=== PATIENT | female | born 1945 | race Hispanic/Latino ===

== ENCOUNTER 2018-02-16 23:47 | Inpatient (IN) | payer OTHER ==
[2018-02-17] MEDS ORDERED: ONDANSETRON 4 MG/2 ML VIAL ONE (00:46)
[2018-02-17] MEDS ORDERED: FENTANYL CITR 100 MCG/2 ML ONE (00:46)
[2018-02-17] MEDS ORDERED: NA CHLORIDE 0.9% 1,000 ML ONE ×2 (00:46→02:58)
[2018-02-17] MEDS ORDERED: PANTOPRAZOLE 40 MG INJ ONE (00:46)
[2018-02-17 01:10] LABS: Protime INR 1.03
[2018-02-17 01:11] LABS: Absolute Lymphocytes (CBC) 2.6 K/uL (0.7-4.9); Absolute Monocytes 0.8 K/uL (0.1-1.3); Absolute Neutrophil 8.3 K/uL (1.8-8.0); Basophils % 0.6 % (0-1.3); Eosinophils % 1.4 % (0-4.4); Hematocrit 43.2 % (36.0-45.0); MCH 30.7 pg (27.0-35.0); MCV 87.7 fL (80-100); MPV 8.4 fL (7.6-11.3); Monocytes % 6.5 % (3.3-12.3); RBC Red Blood Cell Count 4.93 M/uL (3.86-4.86)
[2018-02-17 01:47] LABS: Urine Blood NEGATIVE (NEG); Urine Glucose NEGATIVE (NEG); Urine Protein NEGATIVE (NEG); Urine Specific Gravity 1.015 (1.005-1.030)
[2018-02-17 01:48] LABS: Albumin 4.1 g/dL (3.4-5.0); Bilirubin Direct 0.2 mg/dL (0-0.2); Bilirubin Total 0.9 mg/dL (0.2-1.0); Magnesium 2.1 mg/dL (1.8-2.4); Potassium 3.5 mmol/L (3.5-5.1); Protein, Total 7.7 g/dL (6.4-8.2); Troponin (Emerg Dept Use Only) 0.04 ng/mL (0.0-0.045)
--- NOTE | 2018-02-17 02:41 | EDPHYS ---
Physician Documentation [facility] Name: Teena Rogers Age: 72 yrs Sex: Female : 1945 Arrival Date: 02/16/2018 Time: 23:51 Bed 6 Private MD: ED Physician Memo Person HPI: 02/17 00:29 This 72 yrs old Female presents to ER via Ambulatory with complaints of kaitlyn Abdominal Pain. 00:29 The patient presents with abdominal pain in the epigastric area, in the upper abdomen. kaitlyn Onset: The symptoms/episode began/occurred just prior to arrival, last night. The symptoms do not radiate. Associated signs and symptoms: Pertinent positives: nausea. Historical: - Allergies: 00:20 Codeine; bb - Home Meds: 00:20 brimonidine 0.15 % ophthalmic drop 1 drop twice a day [Active]; desoximetasone Topical bb [Active]; indapamide 2.5 mg oral tab 1 tab twice a day [Active]; levothyroxine 75 mcg tab 1 tab once daily [Active]; Mirapex 0.25 mg Oral tab 1 tab twice a day [Active]; vit D3 2000 IU daily [Active]; vit C daily [Active]; potassium chloride 10 mEq Oral cpER 3 caps once daily [Active]; Rytary 48.75-195 mg oral cpER 1 cap twice a day [Active]; estradiol 10 mcg vag tab Tu and Sun [Active]; - PMHx: 00:20 Hypothyroidism; Parkinsons; Glaucoma; thyroid cancer; bb - PSHx: 00:20 Hysterectomy; Thyroidectomy; arthroscopy; Breast biopsy; neck fusion; Cholecystectomy; bb Appendectomy; - Immunization history:: Adult Immunizations up to date. - Social history:: Smoking status: Patient/guardian denies using tobacco, Patient/guardian denies using alcohol, street drugs. - Ebola Screening: : No symptoms or risks identified at this time. - Family history:: not pertinent. ROS: 00:29 Constitutional: Negative for fever, chills, and weight loss, Eyes: Negative for injury, kaitlyn pain, redness, and discharge, ENT: Negative for injury, pain, and discharge, Neck: Negative for injury, pain, and swelling, Cardiovascular: Negative for chest pain, palpitations, and edema, Respiratory: Negative for shortness of breath, cough, wheezing, and pleuritic chest pain, Back: Negative for injury and pain, : Negative for injury, bleeding, discharge, and swelling, MS/Extremity: Negative for injury and deformity, Skin: Negative for injury, rash, and discoloration, Neuro: Negative for headache, weakness, numbness, tingling, and seizure, Psych: Negative for depression, anxiety, suicide ideation, homicidal ideation, and hallucinations, Allergy/Immunology: Negative for hives, rash, and allergies, Endocrine: Negative for neck swelling, polydipsia, polyuria, polyphagia, and marked weight changes, Hematologic/Lymphatic: Negative for swollen nodes, abnormal bleeding, and unusual bruising. 00:29 Abdomen/GI: Positive for abdominal pain, of the epigastric area, right upper quadrant and left upper quadrant. Exam: 00:29 Constitutional: This is a well developed, well nourished patient who is awake, alert, kaitlyn and in no acute distress. Head/Face: Normocephalic, atraumatic. Eyes: Pupils equal round and reactive to light, extra-ocular motions intact. Lids and lashes normal. Conjunctiva and sclera are non-icteric and not injected. Cornea within normal limits. Periorbital areas with no swelling, redness, or edema. ENT: Nares patent. No nasal discharge, no septal abnormalities noted. Tympanic membranes are normal and external auditory canals are clear. Oropharynx with no redness, swelling, or masses, exudates, or evidence of obstruction, uvula midline. Mucous membranes moist. Neck: Trachea midline, no thyromegaly or masses palpated, and no cervical lymphadenopathy. Supple, full range of motion without nuchal rigidity, or vertebral point tenderness. No Meningismus. Chest/axilla: Normal chest wall appearance and motion. Nontender with no deformity. No lesions are appreciated. Cardiovascular: Regular rate and rhythm with a normal S1 and S2. No gallops, murmurs, or rubs. Normal PMI, no JVD. No pulse deficits. Respiratory: Lungs have equal breath sounds bilaterally, clear to auscultation and percussion. No rales, rhonchi or wheezes noted. No increased work of breathing, no retractions or nasal flaring. Back: No spinal tenderness. No costovertebral tenderness. Full range of motion. Female : Normal external genitalia. Skin: Warm, dry with normal turgor. Normal color with no rashes, no lesions, and no evidence of cellulitis. MS/ Extremity: Pulses equal, no cyanosis. Neurovascular intact. Full, normal range of motion. Neuro: Awake and alert, GCS 15, oriented to person, place, time, and situation. Cranial nerves II-XII grossly intact. Motor strength 5/5 in all extremities. Sensory grossly intact. Cerebellar exam normal. Normal gait. Psych: Awake, alert, with orientation to person, place and time. Behavior, mood, and affect are within normal limits. 00:29 Abdomen/GI: Inspection: distension, Bowel sounds: normal, active, all quadrants, Palpation: mild abdominal tenderness, moderate abdominal tenderness, in the epigastric area, right upper quadrant and left upper quadrant, Liver: no appreciated palpable abnormalities, Hernia: not appreciated. Vital Signs: 00:20 BP 121 / 69; Pulse 77; Resp 16 S; Temp 97.8(O); Pulse Ox 97% on R/A; Weight 68.04 kg bb (R); Height 5 ft. 0 in. (152.40 cm) (R); Pain 8/10; 02:58 BP 140 / 83; Pulse 82; Resp 18; Pulse Ox 96% on R/A; Pain 4/10; tl2 04:10 BP 127 / 55; Pulse 68; Resp 18; Pulse Ox 97% on R/A; tl2 00:20 Body Mass Index 29.29 (68.04 kg, 152.40 cm) MDM: 02/16 23:57 Patient medically screened. [facility] 02/17 00:32 Data reviewed: vital signs, nurses notes, lab test result(s), EKG, radiologic studies, [facility] CT scan, plain films. 02/17 00:27 Order name: Basic Metabolic Panel; Complete Time: : [facility] 02/17 00:27 Order name: CBC with Diff; Complete Time: : [facility] 02/18 00:27 Order name: LFT's; Complete Time: : [facility] 02/17 00:27 Order name: Magnesium; Complete Time: : [facility] 02/17 00:27 Order name: NT PRO-BNP; Complete Time: : [facility] 02/18 00:27 Order name: PT-INR; Complete Time: : [facility] 02/17 00:27 Order name: Troponin (emerg Dept Use Only); Complete Time: 02:26 [facility] 02/17 00:27 Order name: XRAY Chest (1 view) [facility] 02/17 00:27 Order name: Lipase; Complete Time: 02:26 [facility] 02/17 00:27 Order name: CT Abd/Pelvis - W/Contrast [facility] 02/17 00:27 Order name: Urine Culture [facility] 02/17 01:24 Order name: Urine Dipstick--Ancillary (enter results); Complete Time: 02:26 or 02/17 00:27 Order name: EKG; Complete Time: 00:28 [facility] 02/17 00:27 Order name: Cardiac monitoring; Complete Time: 00:27 [facility] 02/17 00:27 Order name: EKG - Nurse/Tech; Complete Time: 00:42 [facility] 02/17 00:27 Order name: IV Saline Lock; Complete Time: 00:27 [facility] 02/17 00:27 Order name: Labs collected and sent; Complete Time: 00:27 [facility] 02/17 00:27 Order name: O2 Per Protocol; Complete Time: 00:27 [facility] 02/17 00:27 Order name: O2 Sat Monitoring; Complete Time: 00:27 [facility] 02/17 02:44 Order name: CONS Physician Consult EDDC 02/17 00:27 Order name: Urine Dipstick-Ancillary (obtain specimen); Complete Time: 01:00 [facility] Administered Medications: 01:01 Drug: NS 0.9% 500 ml Route: IV; Rate: bolus; Site: right antecubital; tl2 03:59 Follow up: IV Status: Completed infusion; IV Intake: 500ml tl2 01:01 Drug: NS 0.9% 1000 ml Route: IV; Rate: 125 ml/hr; Site: right antecubital; tl2 01:01 Drug: ProTONIX 40 mg Route: IVP; Site: right antecubital; tl2 02:00 Follow up: Response: No adverse reaction tl2 01:01 Drug: fentaNYL (PF) 25 mcg Route: IVP; Site: right antecubital; tl2 02:00 Follow up: Response: No adverse reaction; Pain is decreased tl2 01:02 Drug: Zofran 4 mg Route: IVP; Site: right antecubital; tl2 02:00 Follow up: Response: No adverse reaction tl2 02:37 CANCELLED (Duplicate Order): NS 0.9% 1000 ml IV at 125 ml/hr continuous kaitlyn 02:57 Drug: NS 0.9% 1000 ml Route: IV; Rate: 1 bolus; Site: right antecubital; tl2 04:01 Follow up: IV Status: Completed infusion; IV Intake: 1000ml tl2 02:57 Drug: NS 0.9% 500 ml Route: IV; Rate: bolus; Site: right antecubital; tl2 04:01 Follow up: IV Status: Completed infusion; IV Intake: 500ml tl2 02:57 Drug: Rocephin - (cefTRIAXone) 1 grams Route: IVPB; Infused Over: 30 mins; Site: right tl2 antecubital; 04:01 Follow up: IV Status: Completed infusion tl2 03:59 Drug: fentaNYL (PF) 25 mcg Route: IVP; Site: right antecubital; tl2 04:20 Follow up: Response: No adverse reaction; Pain is decreased tl2 Disposition: 02/17/18 02:40 Hospitalization ordered by Paco Art for Inpatient Admission. Preliminary diagnosis are Abdominal tenderness, Acute pancreatitis, Urinary tract infection, site not specified. - Bed requested for Telemetry/MedSurg (Inpatient). - Status is Inpatient Admission. tl2 - Condition is Stable. - Problem is new. - Symptoms have improved. UTI on Admission? Yes Signatures: Dispatcher [employer] EDMS Chloe Bloom RN RN mw Anderson, Corey, MD MD cha Ballard, Brenda, RN RN bb Knox, Taylor, RN RN tl2 Corrections: (The following items were deleted from the chart) 02:37 02:36 NS 0.9% 1000 ml IV at 125 ml/hr continuous ordered. kaitlyn kaitlyn 02:46 02:40 Hospitalization Ordered by Paco Art MD for Inpatient Admission. Preliminary kaitlyn diagnosis is Abdominal tenderness; Acute pancreatitis. Bed requested for Telemetry/MedSurg (Inpatient). Status is Inpatient Admission. Condition is Stable. Problem is new. Symptoms have improved. UTI on Admission? No. kaitlyn 02:50 02:46 02/17/2018 02:40 Hospitalization Ordered by Paco Art MD for Inpatient mw Admission. Preliminary diagnosis is Abdominal tenderness; Acute pancreatitis; Urinary tract infection, site not specified. Bed requested for Telemetry/MedSurg (Inpatient). Status is Inpatient Admission. Condition is Stable. Problem is new. Symptoms have improved. UTI on Admission? Yes. [facility] 04:29 02:50 02/17/2018 02:40 Hospitalization Ordered by Paco Art MD for Inpatient tl2 Admission. Preliminary diagnosis is Abdominal tenderness; Acute pancreatitis; Urinary tract infection, site not specified. Bed requested for Telemetry/MedSurg (Inpatient). Status is Inpatient Admission. Condition is Stable. Problem is new. Symptoms have improved. UTI on Admission? Yes. mw
--- NOTE | 2018-02-17 02:41 | ER ---
Nurse's Notes [facility] Name: Teena Rogers Age: 72 yrs Sex: Female : 1945 Arrival Date: 02/16/2018 Time: 23:51 Bed 6 Private MD: Diagnosis: Abdominal tenderness;Acute pancreatitis;Urinary tract infection, site not specified Presentation: 02/17 00:09 Presenting complaint: Patient states: she has been having severe upper abdominal pain bb since late evening she feels nauseous but has not vomited and denies diarrhea. Pt had breakfast this morning but pain was worse after eating pt is currently taking a medrol dose pack for cellulitis to her right arm from a bee sting. Transition of care: patient was not received from another setting of care. Onset of symptoms was February 15, 2018. Risk Assessment: Do you want to hurt yourself or someone else? Patient reports no desire to harm self or others. Initial Sepsis Screen: Does the patient meet any 2 criteria? No. Patient's initial sepsis screen is negative. Does the patient have a suspected source of infection? No. Patient's initial sepsis screen is negative. Care prior to arrival: None. 00:09 Method Of Arrival: Ambulatory bb 00:09 Acuity: RICHA 3 bb Historical: - Allergies: 00:20 Codeine; bb - Home Meds: 00:20 brimonidine 0.15 % ophthalmic drop 1 drop twice a day [Active]; desoximetasone Topical bb [Active]; indapamide 2.5 mg oral tab 1 tab twice a day [Active]; levothyroxine 75 mcg tab 1 tab once daily [Active]; Mirapex 0.25 mg Oral tab 1 tab twice a day [Active]; vit D3 2000 IU daily [Active]; vit C daily [Active]; potassium chloride 10 mEq Oral cpER 3 caps once daily [Active]; Rytary 48.75-195 mg oral cpER 1 cap twice a day [Active]; estradiol 10 mcg vag tab and Sun [Active]; - PMHx: 00:20 Hypothyroidism; Parkinsons; Glaucoma; thyroid cancer; bb - PSHx: 00:20 Hysterectomy; Thyroidectomy; arthroscopy; Breast biopsy; neck fusion; Cholecystectomy; bb Appendectomy; - Immunization history:: Adult Immunizations up to date. - Social history:: Smoking status: Patient/guardian denies using tobacco, Patient/guardian denies using alcohol, street drugs. - Ebola Screening: : No symptoms or risks identified at this time. - Family history:: not pertinent. Screenin:26 Abuse screen: Denies threats or abuse. Nutritional screening: No deficits noted. tl2 Tuberculosis screening: No symptoms or risk factors identified. Fall Risk None identified. Assessment: 00:22 General: Appears in no apparent distress. uncomfortable, Behavior is calm, cooperative, tl2 appropriate for age. Pain: Complains of pain in epigastric area, right upper quadrant and left upper quadrant. Neuro: Level of Consciousness is awake, alert, obeys commands, Oriented to person, place, time, situation. Cardiovascular: Denies chest pain. Respiratory: Airway is patent Respiratory effort is even, unlabored, Respiratory pattern is regular, symmetrical. GI: Bowel sounds present X 4 quads. Abd is soft and non tender Patient currently denies diarrhea, nausea, vomiting. : No signs and/or symptoms were reported regarding the genitourinary system. Derm: Skin is pink, warm \T\ dry. 02:23 Reassessment: Patient appears in no apparent distress at this time. Patient and/or tl2 family updated on plan of care and expected duration. Pain level reassessed. Patient is alert, oriented x 3, equal unlabored respirations, skin warm/dry/pink. Vital Signs: 00:20 BP 121 / 69; Pulse 77; Resp 16 S; Temp 97.8(O); Pulse Ox 97% on R/A; Weight 68.04 kg bb (R); Height 5 ft. 0 in. (152.40 cm) (R); Pain 8/10; 02:58 BP 140 / 83; Pulse 82; Resp 18; Pulse Ox 96% on R/A; Pain 4/10; tl2 04:10 BP 127 / 55; Pulse 68; Resp 18; Pulse Ox 97% on R/A; tl2 00:20 Body Mass Index 29.29 (68.04 kg, 152.40 cm) ED Course: 02/16 23:51 Patient arrived in ED. ag3 23:57 Memo Person MD is Attending Physician. kaitlyn 02/17 00:12 Triage completed. bb 00:13 Coni Lawrence RN is Primary Nurse. tl2 00:14 Inserted saline lock: 20 gauge in right antecubital area, using aseptic technique. tl2 Blood collected. 00:20 Arm band placed on Patient placed in an exam room, on a stretcher, on pulse oximetry. bb Family accompanied patient. 00:26 Patient has correct armband on for positive identification. Placed in gown. Bed in low tl2 position. Call light in reach. Side rails up X 1. Adult w/ patient. 00:37 X-ray completed. Portable x-ray completed in exam room. Patient tolerated procedure sg4 well. 00:39 XRAY Chest (1 view) In Process Unspecified. EDMS 02:[address] via wheelchair. kw1 02:34 CT Abd/Pelvis - W/Contrast In Process Unspecified. EDMS 02:35 CT completed. Patient tolerated procedure well. Patient moved back from CT. kw1 02:38 Paco Art MD is Hospitalizing Provider. kaitlyn 04:27 No provider procedures requiring assistance completed. Patient admitted, IV remains in tl2 place. Administered Medications: 01:01 Drug: NS 0.9% 500 ml Route: IV; Rate: bolus; Site: right antecubital; tl2 03:59 Follow up: IV Status: Completed infusion; IV Intake: 500ml tl2 01:01 Drug: NS 0.9% 1000 ml Route: IV; Rate: 125 ml/hr; Site: right antecubital; tl2 01:01 Drug: ProTONIX 40 mg Route: IVP; Site: right antecubital; tl2 02:00 Follow up: Response: No adverse reaction tl2 01:01 Drug: fentaNYL (PF) 25 mcg Route: IVP; Site: right antecubital; tl2 02:00 Follow up: Response: No adverse reaction; Pain is decreased tl2 01:02 Drug: Zofran 4 mg Route: IVP; Site: right antecubital; tl2 02:00 Follow up: Response: No adverse reaction tl2 02:37 CANCELLED (Duplicate Order): NS 0.9% 1000 ml IV at 125 ml/hr continuous kaitlyn 02:57 Drug: NS 0.9% 1000 ml Route: IV; Rate: 1 bolus; Site: right antecubital; tl2 04:01 Follow up: IV Status: Completed infusion; IV Intake: 1000ml tl2 02:57 Drug: NS 0.9% 500 ml Route: IV; Rate: bolus; Site: right antecubital; tl2 04:01 Follow up: IV Status: Completed infusion; IV Intake: 500ml tl2 02:57 Drug: Rocephin - (cefTRIAXone) 1 grams Route: IVPB; Infused Over: 30 mins; Site: right tl2 antecubital; 04:01 Follow up: IV Status: Completed infusion tl2 03:59 Drug: fentaNYL (PF) 25 mcg Route: IVP; Site: right antecubital; tl2 04:20 Follow up: Response: No adverse reaction; Pain is decreased tl2 Intake: 03:59 IV: 500ml; Total: 500ml. tl2 04:01 IV: 1000ml; Total: 1500ml. tl2 04:01 IV: 500ml; Total: 2000ml. tl2 Outcome: 02:40 Decision to Hospitalize by Provider. kaitlyn 04:27 Admitted to Tele accompanied by tech, via wheelchair, room 422, with chart, Report tl2 called to SAMARA Brown 04:27 Condition: stable 04:27 Discharge instructions given to patient, family, Instructed on the need for admit. 04:29 Patient left the ED. tl2 Signatures: Dispatcher [employer] EDMemo George MD MD cha Ballard, Brenda RN Coni Alvarez RN RN tl2 Trish Weathers1 Luma Young Susana sg4
[2018-02-17] MEDS ORDERED: CEFTRIAXONE/SWI 1gm 1 GM/10 ML SYR ONE (02:58)
[2018-02-17] MEDS ORDERED: MAGNESIUM HYDROXIDE 8% 30 ML PO PRN (03:32)
[2018-02-17] MEDS ORDERED: ONDANSETRON 4 MG/2 ML VIAL IV PRN (03:32)
[2018-02-17] MEDS ORDERED: ALPRAZOLAM 0.25 MG TABLET PO PRN (03:32)
[2018-02-17] MEDS ORDERED: ACETAMINOPHEN 500 MG TAB PO PRN (03:32)
[2018-02-17] MEDS: NA CHLORIDE 0.9% 1,000 ML IV SCH ×4 (04:41→23:54)
[2018-02-17 06:27] VITALS: BMI 29.2
--- NOTE | 2018-02-17 08:07 | P.HP ---
Certification for Inpatient Patient admitted to: Inpatient With expected LOS: >2 Midnights Patient will require the following post-hospital care: None Practitioner: I am a practitioner with admitting privileges, knowledge of patient current condition, hospital course, and medical plan of care. Services: Services provided to patient in accordance with Admission requirements found in Title 42 Section 412.3 of the Code of Federal Regulations Patient History Date of Service: 02/17/18 Reason for admission: Acute pancreatitis History of Present Illness: Patient is a 72-year-old female status post cholecystectomy who comes into the hospital with abdominal pain. Her pain was mainly in the right upper quadrant epigastric region. This is been going on since Sunday in her pain has gotten progressively worse. She came into the emergency room for further evaluation. In the emergency room her workup revealed acute pancreatitis. Patient states she did have a drink but drinks very rarely. She has also been on a Medrol Dosepak since Sunday for a skin allergy. On that same Sunday she did receive a cortisone shot in the knee for arthritis. While in the ER her workup revealed lipase of greater than 5000. Patient did have a CT scan done which did not reveal any acute abnormalities except for some post cholecystectomy changes. At this time patient be admitted to the hospital for treatment for acute pancreatitis. Allergies codeine Allergy (Verified 12/28/17 13:29) Shortness of breath Home Medications: Ascorbic Acid [Vitamin C] 500 mg PO DAILY 02/17/18 Brimonidine [Alphagan P 0.15%*] 1 drops EACH EYE TID 02/17/18 Carbidopa/Levodopa [Rytary ER 48.75 mg-195 mg Cap] 1 each PO BID 02/17/18 Cholecalciferol (Vitamin D3) [Vitamin D3] 2,000 unit PO DAILY 02/17/18 Desoximetasone 1 geoff TP PRN 02/17/18 Estradiol [Vagifem] 1 tab VAG SEECOM 02/17/18 Indapamide [Lozol] 1 tab PO DAILY 02/17/18 Levothyroxine [Synthroid] 100 mcg PO [id number] 02/17/18 Potassium Chloride [K-Dur] 30 meq PO DAILY 02/17/18 Pramipexole [Mirapex] 0.25 mg PO BID 02/17/18 - Past Medical/Surgical History Has patient received pneumonia vaccine in the past: No Diabetic: No -: Hyothyroisism -: Thyroid Cancer -: Parkinson's -: HTN -: Glaucoma -: Thyroidectomy -: Neck fusion -: Cholecystectomy -: Appendectomy -: Hysterectomy -: Breast biospy - Family History Mother Medical History: Other (see notes) Notes: alzheimers Father Medical History: Lung disease, Cancer Sister Medical History: Hypertension, Diabetes - Social History Smoking Status: Never smoker Alcohol use: Yes CD- Drugs: No Caffeine use: Yes Place of Residence: Home Review of Systems 10-point ROS is otherwise unremarkable Physical Examination - Vital Signs Temperature: 97.6 F Blood Pressure: 127/55 Pulse: 68 Respirations: 18 Pulse Ox (%): 96 - Physical Exam General: Alert, In no apparent distress, Oriented x3 HEENT: Atraumatic, PERRLA, Mucous membr. moist/pink, EOMI, Sclerae nonicteric Neck: Supple, 2+ carotid pulse no bruit, No LAD, Without JVD or thyroid abnormality Respiratory: Clear to auscultation bilaterally, Normal air movement Cardiovascular: Regular rate/rhythm, Normal S1 S2, No murmurs Gastrointestinal: Normal bowel sounds, Soft and benign, Non-distended, No rebound, No guarding, Tenderness Musculoskeletal: No clubbing, No swelling, No tenderness Integumentary: No rashes Neurological: Normal gait, Normal speech, Normal strength at 5/5 x4 extr, Normal tone, Sensation intact, Cranial nerves 3-12 intact, Normal affect Lymphatics: No axilla or inguinal lymphadenopathy - Studies Laboratory Data (last 24 hrs) 02/17/18 00:20: PT 12.1, INR 1.03 02/17/18 00:20: WBC 12.0 H, Hgb 15.1 H, Hct 43.2, Plt Count 345 02/17/18 00:20: Sodium 139, Potassium 3.5, BUN 25 H, Creatinine 0.70, Glucose 130 H, Magnesium 2.1, Total Bilirubin 0.9, AST 60 H, ALT 11 L, Alkaline Phosphatase 95, Lipase 5476 H Assessment & Plan - Problems (Diagnosis) (1) Acute pancreatitis Current Visit: Yes Status: Acute (2) Current use of steroid medication Current Visit: Yes Status: Acute - Plan 1. Continue with IV hydration 2. May start on antibiotics if her lipase continues to go up or pain continues. At this time no signs of necrotizing pancreatitis so will hold off on starting antibiotics. 3. Continue with pain control 4. NPO 5. GI consultation; 6. Serial H&H, and we will monitor CBC, BMP, LFTs and lipase along with electrolytes. 7. GI and DVT prophylaxis Discharge Plan: Home Plan to discharge in: Greater than 2 days - Advance Directives Does patient have a Living Will: Yes Does patient have a Durable POA for Healthcare: Yes - Code Status/Comfort Care Code Status Assessed: Yes Code Status: Full Code Critical Care: No Time Spent Managing PTS Care (In Minutes): 50
--- NOTE | 2018-02-17 08:13 | RAD REPORT ---
EXAM DESCRIPTION: CT - Abdomen Pelvis W Contrast - 02/17/2018 7:00 am CLINICAL HISTORY: Severe abdominal pain ; prior hysterectomy cholecystectomy and appendectomy A preliminary report was provided at the time of the study and reviewed prior to final report. COMPARISON: None. TECHNIQUE: Biphasic, helical CT imaging of the abdomen and pelvis was performed following 100 ml non -ionic IV contrast. Oral contrast was given. All CT scans are performed using dose optimization technique as appropriate and may include automated exposure control or mA/KV adjustment according to patient size. FINDINGS: No suspicious findings in the lung bases. Liver size is normal. No focal liver lesion identified. Attenuation indicates mild fatty infiltration . No splenomegaly or focal splenic abnormality. No mass of the pancreas identified. There is minimal stranding and edema adjacent to the pancreatic tail. Gallbladder is absent. Biliary tree is dilated. No duct stone or mass identified. This may simply be the reservoir effect after a cholecystectomy. Co rrelation is needed with any biliary tree clinical or laboratory findings of obstruction. Symmetric renal function is seen with no hydronephrosis or suspicious renal mass. No pyelonephritis o r acute renal parenchymal process. Small benign left renal cysts are present. Contracted urinary blad dax shows no gross abnormality. Uterus is absent. Ovaries are absent or atrophic. No adnexal abnormal ity. No dilated bowel loops or bowel wall thickening. Moderate stool volume in the colon. No acute GI proc ess seen. No free air, free fluid or inflammatory stranding. No hernia, mass or bulky lymphadenopath y. No adrenal abnormality. No suspicious bony findings. IMPRESSION: Trace amount of stranding or edema adjacent to the pancreatic tail suspicious for pancre atitis. Correlation is needed with any matching clinical or laboratory abnormalities. No peripancreatic abscess, pseudocyst or other complicating factor. Intrahepatic and extrahepatic biliary tree dilatation. This is believed to be the reservoir effect af ter cholecystectomy. However, correlation is needed with any biliary obstructive clinical or laborato ry findings. Fatty infiltration of the liver.
[2018-02-17] MEDS ORDERED: SODIUM CHLORIDE 0.9% 10ML INJ IV PRN (08:40)
[2018-02-17] MEDS ORDERED: DESOXIMETASONE TP SCH (08:45)
--- NOTE | 2018-02-17 08:55 | RAD REPORT ---
EXAM DESCRIPTION: RAD - Chest Single View - 02/17/2018 12:39 am CLINICAL HISTORY: Severe upper abdominal pain, abdominal distention COMPARISON: November 2013 TECHNIQUE: AP portable chest image was obtained 0023 hours . FINDINGS: Lung volumes are low. No acute lung parenchymal process. Heart and vasculature are normal. No measurable pleural effusion and no pneumothorax. No acute bony abnormality seen. No acute aortic findings suspected. IMPRESSION: No acute cardiopulmonary process.
[2018-02-17] MEDS: LEVODOPA PO SCH ×2 (09:00→20:17)
[2018-02-17] MEDS: CARBIDOPA PO SCH ×2 (09:00→20:17)
[2018-02-17] MEDS: ENOXAPARIN 40 MG/0.4 ML SQ SCH (09:18)
[2018-02-17] MEDS: POTASSIUM CL SA 10 MEQ TAB PO SCH (09:18)
[2018-02-17] MEDS: PANTOPRAZOLE 40 MG INJ IVP SCH ×2 (09:19→20:17)
[2018-02-17] MEDS: ASCORBIC ACID 500 MG TABLET PO SCH (09:19)
[2018-02-17] MEDS: VITAMIN D 1000 UNIT TAB PO SCH (09:19)
[2018-02-17] MEDS: PRAMIPEXOLE 0.25 MG TAB PO SCH ×2 (09:19→20:17)
[2018-02-17] MEDS: INDAPAMIDE 1.25 MG TAB PO SCH (11:25)
--- NOTE | 2018-02-17 11:52 | P.PN ---
Subjective Date of Service: 02/17/18 (Hospitalist note) Chief Complaint: Acute pancreatitis Patient is doing much better pain has almost resolved denies any nausea or vomiting and is status post cholecystectomy Denies alcohol use Review of Systems Unremarkable Physical Examination - Vital Signs Temperature: 97.6 F Blood Pressure: 127/55 Pulse: 68 Respirations: 18 Pulse Ox (%): 96 - Physical Exam General: Alert, Oriented x3 Neck: Supple Respiratory: Clear to auscultation bilaterally Cardiovascular: No edema, Regular rate/rhythm Gastrointestinal: Normal bowel sounds, Tenderness (Mild generalized tenderness positive bowel sounds) - Studies Laboratory Data (last 24 hrs) 02/17/18 00:20: PT 12.1, INR 1.03 02/17/18 00:20: WBC 12.0 H, Hgb 15.1 H, Hct 43.2, Plt Count 345 02/17/18 00:20: Sodium 139, Potassium 3.5, BUN 25 H, Creatinine 0.70, Glucose 130 H, Magnesium 2.1, Total Bilirubin 0.9, AST 60 H, ALT 11 L, Alkaline Phosphatase 95, Lipase 5476 H Assessment & Plan - Problems (Diagnosis) (1) Acute pancreatitis Current Visit: Yes Status: Acute Plan: Patient is 72 years of age admitted with acute pancreatitis status post cholecystectomy mildly elevated white count her lipase was over 5000 CT scan confirmed pancreatitis patient is NPO for the labs unremarkable patient is on Rocephin does have a history of Parkinson's disease
[2018-02-17] MEDS: BRIMONIDINE 0.15% OPTH SCH ×2 (13:11→20:17)
[2018-02-17] MEDS: HYDROMORPHONE HCL 2 MG/ML inj IV PRN (20:17)
[2018-02-18] MEDS: LEVOTHYROXINE SOD 0.1 MG TAB PO SCH (06:20)
[2018-02-18] MEDS: NA CHLORIDE 0.9% 1,000 ML IV SCH ×3 (06:20→12:23)
[2018-02-18 06:23] LABS: Absolute Lymphocytes (CBC) 1.2 K/uL (0.7-4.9); Absolute Monocytes 0.6 K/uL (0.1-1.3); Absolute Neutrophil 6.5 K/uL (1.8-8.0); Basophils % 0.2 % (0-1.3); Eosinophils % 2.3 % (0-4.4); Lymphocytes % 14.2 % (15.3-44.8); MCH 31.1 pg (27.0-35.0); MCV 87.1 fL (80-100); Monocytes % 7.2 % (3.3-12.3); RBC Red Blood Cell Count 4.13 M/uL (3.86-4.86)
[2018-02-18 06:52] LABS: ALT/SGPT 47 U/L (12-78); AST/SGOT 295 U/L (15-37); Alkaline Phosphatase 190 U/L (45-117); BUN Blood Urea Nitrogen 9 mg/dL (7-18); Bicarbonate 26 mmol/L (21-32); Bilirubin Total 1.8 mg/dL (0.2-1.0); Glucose Level 98 mg/dL (74-106); HDL Cholesterol 43 mg/dL (40-60); LDL Cholesterol, Calculated 69 (<130); Lipase 867 U/L (73-393); Magnesium 2.1 mg/dL (1.8-2.4); Phosphorus 2.7 mg/dL (2.5-4.9); Potassium 3.1 mmol/L (3.5-5.1); Protein, Total 6.1 g/dL (6.4-8.2); Sodium Level 139 mmol/L (136-145)
--- NOTE | 2018-02-18 07:05 | EKG ---
Test Date: 2018-02-17 Test Time: 00:34:39 Sound Effects Supervisor: VINNY MEASUREMENT RESULTS: Intervals: Rate: 67 AR: 140 QRSD: 84 QT: 402 QTc: 424 [place]: P: 62 AR: 140 QRS: 12 T: 53 INTERPRETIVE STATEMENTS: Normal sinus rhythm Nonspecific ST and T wave abnormality Abnormal ECG Compared to ECG 03/13/2008 08:27:40 ST (T wave) deviation now present Sinus bradycardia no longer present Electronically Signed On 02-18-18 07:03:32 COOLER TENDER by Anton Stearns
--- NOTE | 2018-02-18 08:19 | RAD REPORT ---
EXAM DESCRIPTION: MRI - Cholangiogram - 02/18/2018 8:05 am CLINICAL HISTORY: Idiopathic acute pancreatitis, prior cholecystectomy, abnormal CT study COMPARISON: CT examination February 17 TECHNIQUE: Axial and coronal heavily T2 weighted sequences were obtained. Coronal T2 HASTE fat satur ation coronal static and coronal multiplane reconstruction imaging generated and reviewed. Horizontal and vertical axis rotational views obtained using maximum intensity projection (MIP) protocol. FINDINGS: Extrahepatic biliary tree is dilated up to 15-16 mm. There is a smooth tapering into the p ancreatic head. No stricture or mass identifiable. No common duct stone identifiable. Remnant cystic duct shows no acute finding. Intrahepatic biliary tree dilatation is present to a lesser degree. No pancreatic duct dilatation. Mild pancreatitis changes again noted at the tail of the pancreas. Biliary tree dilatation may be physiologic related to prior cholecystectomy. No finding and this exam ination to indicate an obstructive process or duct stone. IMPRESSION: No duct stone, mass or other suspicious finding. Biliary tree is dilated to a maximum 15-16 mm. This may be physiologic dilatation after cholecystecto my given the absence of any stone or mass.
[2018-02-18] MEDS ORDERED: POTASSIUM 25 MEQ EFFERV TAB PO ONE (09:00)
[2018-02-18] MEDS: LEVODOPA PO SCH ×2 (09:09→20:52)
[2018-02-18] MEDS: CARBIDOPA PO SCH ×2 (09:09→20:52)
[2018-02-18] MEDS: BRIMONIDINE 0.15% OPTH SCH ×3 (09:10→20:52)
[2018-02-18] MEDS: VITAMIN D 1000 UNIT TAB PO SCH (09:11)
[2018-02-18] MEDS: CEFTRIAXONE/SWI 1gm 1 GM/10 ML SYR IV SCH (09:11)
[2018-02-18] MEDS: ASCORBIC ACID 500 MG TABLET PO SCH (09:11)
[2018-02-18] MEDS: ENOXAPARIN 40 MG/0.4 ML SQ SCH (09:11)
[2018-02-18] MEDS: POTASSIUM CL SA 10 MEQ TAB PO SCH (09:11)
[2018-02-18] MEDS: PANTOPRAZOLE 40 MG INJ IVP SCH ×2 (09:11→20:52)
[2018-02-18] MEDS: INDAPAMIDE 1.25 MG TAB PO SCH (09:12)
[2018-02-18] MEDS: PRAMIPEXOLE 0.25 MG TAB PO SCH ×2 (09:12→20:52)
[2018-02-18] MEDS: HYDROMORPHONE HCL 2 MG/ML inj IV PRN (12:17)
--- NOTE | 2018-02-18 14:40 | P.PN ---
Subjective Date of Service: 02/18/18 Chief Complaint: Acute pancreatitis Pt seen and examined at bedside with RN. Chart Reviewed and Case DW with GI. Review of Systems 10-point ROS is otherwise unremarkable Physical Examination - Vital Signs Temperature: 98.2 F Blood Pressure: 154/67 Pulse: 88 Respirations: 24 Pulse Ox (%): 95 - Physical Exam General: Alert, In no apparent distress HEENT: Atraumatic, PERRLA, EOMI Neck: Supple, JVD not distended Respiratory: Clear to auscultation bilaterally, Normal air movement Cardiovascular: Regular rate/rhythm, Normal S1 S2 Gastrointestinal: Normal bowel sounds, No tenderness Musculoskeletal: No tenderness Integumentary: No rashes Neurological: Normal speech, Normal tone, Normal affect Lymphatics: No axilla or inguinal lymphadenopathy - Studies Medications List Reviewed: Yes Assessment And Plan - Current Problems (Diagnosis) (1) Acute pancreatitis Onset Date: 02/18/18 Current Visit: Yes Status: Acute Plan: Acute pancreatitis due to unknown etiology -IV fluids, pain medication, NPO at this time -today patient abdominal pain has subsided markedly. Physical exam was also benign. Will advance to a clear liquid diet. -anticipate discharge in 24-48 hr -GI has been consulted who recommended getting CA 19-9 an MRCP -MRCP is negative for any acute abnormality Qualifiers: Pancreatitis type: idiopathic Acute pancreatitis complication: no infection or necrosis Qualified Code(s): K85.00 - Idiopathic acute pancreatitis without necrosis or infection (2) Current use of steroid medication Onset Date: 02/18/18 Current Visit: Yes Status: Chronic - Plan Currently awaiting clinical improvement. Discharge Plan: Home Plan to discharge in: 48 Hours - Code Status/Comfort Care Code Status Assessed: Yes Critical Care: No
[2018-02-19 05:08] LABS: Amylase Level 95 U/L (25-115); Lipase 590 U/L (73-393)
[2018-02-19] MEDS: LEVOTHYROXINE SOD 0.1 MG TAB PO SCH (05:36)
[2018-02-19] MEDS: CARBIDOPA PO SCH ×2 (08:51→20:14)
[2018-02-19] MEDS: LEVODOPA PO SCH ×2 (08:51→20:14)
[2018-02-19] MEDS: INDAPAMIDE 1.25 MG TAB PO SCH (08:52)
[2018-02-19] MEDS: CEFTRIAXONE/SWI 1gm 1 GM/10 ML SYR IV SCH (08:52)
[2018-02-19] MEDS: ENOXAPARIN 40 MG/0.4 ML SQ SCH (08:53)
[2018-02-19] MEDS: BRIMONIDINE 0.15% OPTH SCH ×3 (08:53→20:14)
[2018-02-19] MEDS: POTASSIUM CL SA 10 MEQ TAB PO SCH (08:54)
[2018-02-19] MEDS: ASCORBIC ACID 500 MG TABLET PO SCH (08:54)
[2018-02-19] MEDS: PRAMIPEXOLE 0.25 MG TAB PO SCH ×2 (08:54→20:13)
[2018-02-19] MEDS: VITAMIN D 1000 UNIT TAB PO SCH (08:54)
[2018-02-19] MEDS: PANTOPRAZOLE 40 MG INJ IVP SCH ×2 (08:54→20:13)
[2018-02-19] MEDS ORDERED: ESTRADIOL 10 MCG VAG SCH (09:00)
[2018-02-19] MEDS ORDERED: Ringers Lactate 1,000 ML IV ONE (10:11)
[2018-02-19] MEDS: Ringers Lactate 1,000 ML IV SCH ×2 (10:23→17:38)
--- NOTE | 2018-02-19 12:05 | P.PN ---
Subjective Date of Service: 02/19/18 Chief Complaint: Acute pancreatitis Subjective: New changes (Reports BEN pain yesterday requiring Dilaudid with subsequent N/V. She had fever this morning she reports and states this makes her feel as though something is not right. She does report flatus / bowel movement. Lipase down to 590, but slight elevation in liver chemistries today.) Review of Systems 10-point ROS is otherwise unremarkable Gastrointestinal: Abdominal Pain (mild) Physical Examination - Vital Signs Temperature: 98.6 F Blood Pressure: 127/57 Pulse: 63 Respirations: 18 Pulse Ox (%): 96 - Physical Exam General: Alert, In no apparent distress, Oriented x3, Cooperative HEENT: Atraumatic, Normocephalic, PERRLA, EOMI Neck: Supple Respiratory: Normal air movement Cardiovascular: Normal pulses Gastrointestinal: No rebound, No guarding, Tenderness (mild BEN) Neurological: Normal speech, Normal strength at 5/5 x4 extr - Studies Microbiology Data (last 24 hrs): 02/17/18 00:52 Clean Catch Urine Lindstrom Count - Final <10,000 CFU/ML. 02/17/18 00:52 Clean Catch Urine - Final Medications List Reviewed: Yes Assessment And Plan - Current Problems (Diagnosis) (1) Epigastric abdominal pain Current Visit: Yes Status: Acute (2) LUQ abdominal pain Current Visit: Yes Status: Acute (3) Nausea Current Visit: Yes Status: Acute (4) Abnormal CT of the abdomen Current Visit: Yes Status: Acute (5) Dysuria Current Visit: Yes Status: Acute (6) UTI (urinary tract infection) Current Visit: Yes Status: Acute (7) Acute pancreatitis Onset Date: 02/18/18 Current Visit: Yes Status: Acute Qualifiers: Pancreatitis type: idiopathic Acute pancreatitis complication: no infection or necrosis Qualified Code(s): K85.00 - Idiopathic acute pancreatitis without necrosis or infection (8) Current use of steroid medication Onset Date: 02/18/18 Current Visit: Yes Status: Chronic - Plan REC: 1) restart IVFs with 1 liter bolus and then 150 cc/hour until discharge 2) decrease diet to clear liquids 3) monitor labs 4) GI clinic f/u next week
[2018-02-19 12:09] LABS: Albumin 3.4 g/dL (3.4-5.0); Bilirubin Direct 0.3 mg/dL (0-0.2); Bilirubin Total 1.1 mg/dL (0.2-1.0); Protein, Total 6.8 g/dL (6.4-8.2)
--- NOTE | 2018-02-19 16:10 | PN ---
Date of Progress Note: 02/19/2018 Subjective: The patient states she feels better. She ate breakfast. She felt quite comfortable wit h it. However, liver enzymes came slightly elevated and was therefore felt that she should be boluse d with IV fluids and maintain back on her fluid diet until this can be reconcile as to the exact etio logy, possibly secondary to Rocephin for what appeared to be a UTI and on exam, her abdominal exam is much better. She feels considerably better. Depending on her next liver enzyme tests disposition c an be made. HR/MODL Voice ID: [id number] Report ID: [id number]
[2018-02-19] MEDS ORDERED: Ringers Lactate 1,000 ML IV SCH (19:00)
[2018-02-20 04:28] LABS: Albumin 3.3 g/dL (3.4-5.0); Bilirubin Direct 0.3 mg/dL (0-0.2); Bilirubin Total 1.2 mg/dL (0.2-1.0); Protein, Total 6.6 g/dL (6.4-8.2)
[2018-02-20] MEDS: LEVOTHYROXINE SOD 0.1 MG TAB PO SCH (05:31)
[2018-02-20] MEDS: PANTOPRAZOLE 40 MG INJ IVP SCH (08:34)
[2018-02-20] MEDS: ENOXAPARIN 40 MG/0.4 ML SQ SCH (08:35)
[2018-02-20] MEDS: ASCORBIC ACID 500 MG TABLET PO SCH (08:35)
[2018-02-20] MEDS: POTASSIUM CL SA 10 MEQ TAB PO SCH (08:35)
[2018-02-20] MEDS: VITAMIN D 1000 UNIT TAB PO SCH (08:35)
[2018-02-20] MEDS: INDAPAMIDE 1.25 MG TAB PO SCH (08:36)
[2018-02-20] MEDS: CARBIDOPA PO SCH (08:36)
[2018-02-20] MEDS: LEVODOPA PO SCH (08:36)
[2018-02-20] MEDS: PRAMIPEXOLE 0.25 MG TAB PO SCH (08:37)
[2018-02-20] MEDS: BRIMONIDINE 0.15% OPTH SCH ×2 (08:37→13:10)
[2018-02-20] MEDS ORDERED: NA CHLORIDE 0.9% 500 ML IV ONE (08:54)
[2018-02-20] MEDS: NA CHLORIDE 0.9% 1,000 ML IV SCH ×2 (09:46→15:40)
[2018-02-20 11:12] VITALS: O2SAT 97
--- NOTE | 2018-02-20 17:00 | PN ---
Subjective: She also states she has no more discomfort in her mid abdominal area and physical exam w as within normal limits. However, serum lipase is still slightly elevated at 664. Her liver enzymes , however, have come back to normal. Alkaline phosphatase is also drop. There were some question wh ether or not the liver enzyme was secondary to Rocephin as this has been held as well. I do not see any reason for to be on antibiotics. She will be discharged. Put her on diet as tolerated. Repeat the liver enzymes, amylase, lipase in a couple of days. We will also see her at beginning of the wee k and Dr. Heard is going to see her in 2 weeks. If she has a flare up, she is notify either Dr. Miguel tucker or myself. HR/MODL Voice ID: [id number] Report ID: [id number]
[2018-02-20 17:01] VITALS: BP 146/65; TEMP 98.7
--- NOTE | 2018-02-20 17:08 | PN ---
Date of Progress Note: 02/20/2018 Subjective: The patient states she feels somewhat better today. She is hungry and bowel movements a re normal. She has DICTATION ENDS HERE HR/MODL Voice ID: [id number] Report ID: [id number]
--- NOTE | 2018-02-22 15:24 | P.PN ---
Subjective Date of Service: 02/20/18 Chief Complaint: Acute pancreatitis Subjective: New changes (Lipase up from 500s to 600s further solid food. Mild side abdominal pain. No N/V.) Review of Systems 10-point ROS is otherwise unremarkable Gastrointestinal: Abdominal Pain (mild) Physical Examination - Vital Signs Temperature: 98.7 F Blood Pressure: 146/65 Pulse: 66 Respirations: 20 Pulse Ox (%): 98 - Physical Exam General: Alert, In no apparent distress, Oriented x3, Cooperative HEENT: Atraumatic, Normocephalic, PERRLA, Mucous membr. moist/pink Neck: Supple Respiratory: Normal air movement Cardiovascular: Normal pulses Gastrointestinal: Soft and benign, No rebound, No guarding Neurological: Normal speech, Normal strength at 5/5 x4 extr - Studies Medications List Reviewed: Yes Assessment And Plan - Current Problems (Diagnosis) (1) Epigastric abdominal pain Status: Acute (2) LUQ abdominal pain Status: Acute (3) Nausea Status: Acute (4) Abnormal CT of the abdomen Status: Acute (5) Dysuria Status: Acute (6) UTI (urinary tract infection) Status: Acute (7) Acute pancreatitis Onset Date: 02/18/18 Status: Acute Qualifiers: Pancreatitis type: idiopathic Acute pancreatitis complication: no infection or necrosis Qualified Code(s): K85.00 - Idiopathic acute pancreatitis without necrosis or infection (8) Current use of steroid medication Onset Date: 02/18/18 Status: Chronic - Plan REC: 1) IVFs NS 150 cc/hour until discharge 2) decrease diet to clear liquids 3) monitor labs 4) GI clinic f/u next week
== END 2018-02-20 17:40 | disposition home or self-care (01) | DRG 439 ==
LOC: ER 23:47 → ERHOLD 02-17 02:51 → 4TH 02-17 04:09
PROVIDERS: ADMIT Family Medicine; ATTEND Family Medicine
DX: K85.00 Idiopathic acute pancreatitis without necrosis or infection (principal); N39.0 Urinary tract infection, site not specified; E89.0 Postprocedural hypothyroidism; G20 Parkinson's disease; Z79.52 Long term (current) use of systemic steroids; Z85.850 Personal history of malignant neoplasm of thyroid; R30.0 Dysuria
CPT/HCPCS: 36415; 71045; 74177; 74181; 80048; 80053; 80061; 80076; 81003; 82150; 83690; 83735; 83880; 84100; 84132; 84484; 85025; 85610; 86301; 87086; 87088; 93005; 96361; 96365; 96375; 99285; C9113; J0696; J1170; J1650; J2405; J3010; J7030; Q9967

== ENCOUNTER 2021-07-27 10:52 | Emergency (ER) | payer OTHER ==
--- OUTSIDE RECORDS SUMMARY | 2021-07-27 10:54 | XMS REPORT | Continuity of Care Document ---
:1945 Author Organization [facility] t Address [address] [place] [address] [address]. [address] [place] [address] Care Team Providers Name Role Phone Unavailable Unavailable Unavailable Problems This patient has no known problems. Allergies, Adverse Reactions, Alerts This patient has no known allergies or adverse reactions. Medications This patient has no known medications. Procedures This patient has no known procedures. Encounters Start End Encounter Admission Attending Care Care Encounter Source Date/Time Date/Time Type Type Clinicians Facility Department ID 2021-01-11 2021-01-11 Outpatient [facility] [id number] 00:00:00 00:00:[address] 2020-05-13 2020-05-13 Outpatient [facility] [id number] 00:00:00 00:00:[address] 2020-04-22 2020-04-22 Outpatient [facility] [id number] 00:00:00 00:00:[address] Results This patient has no known results.
[2021-07-27] MEDS ORDERED: IBUPROFEN 200 MG TAB PO ONE (12:40)
[2021-07-27] MEDS ORDERED: ACETAMINOPHEN 325 MG TABLET ONE (12:40)
--- NOTE | 2021-07-27 13:14 | RAD REPORT ---
EXAM DESCRIPTION: RAD - Knee Left 3 View - 07/27/2021 1:09 pm CLINICAL HISTORY: Left knee pain FINDINGS: No fracture or dislocation is seen. Mild medial joint space narrowing
--- NOTE | 2021-07-27 13:41 | ER ---
Nurse's Notes [facility] Name: Teena Rogers Age: 75 yrs Sex: Female : 1945 Arrival Date: 07/27/2021 Time: 10:53 Bed 10 Private MD: Giancarlo Parada Diagnosis: Pain in left knee Presentation: 07/27 11:26 Chief complaint: Patient states: Pt states was doing yard work yesterday and was vg1 kneeling for awhile and noticed later in the day the pain in Left knee. States unable to bear weight to Left knee. Coronavirus screen: Vaccine status: Patient reports receiving the 2nd dose of the covid vaccine. Client denies travel out of the [place] in the last 14 days. Ebola Screen: Patient negative for fever greater than or equal to 101.5 degrees Fahrenheit, and additional compatible Ebola Virus Disease symptoms. Initial Sepsis Screen: Does the patient meet any 2 criteria? No. Patient's initial sepsis screen is negative. Does the patient have a suspected source of infection? No. Patient's initial sepsis screen is negative. Risk Assessment: Do you want to hurt yourself or someone else? Patient reports no desire to harm self or others. Onset of symptoms was July 26, 2021. 11:26 Method Of Arrival: Wheelchair vg1 11:26 Acuity: RICHA 4 vg1 Triage Assessment: 11:29 General: Appears in no apparent distress. uncomfortable, Behavior is calm, cooperative. vg1 Pain: Complains of pain in left knee. Historical: - Allergies: 11: Codeine; vg1 - Home Meds: 11: brimonidine 0.15 % ophthalmic drop 1 drop twice a day [Active]; Desoximetasone Topical vg1 [Active]; indapamide 2.5 mg Oral tab 1 tab twice a day [Active]; Mirapex 0.25 mg Oral tab 1 tab twice a day [Active]; potassium chloride 10 mEq Oral cpER 3 caps once daily [Active]; - PMHx: 11:29 Glaucoma; Hypothyroidism; Parkinsons; THYROID CANCER; vg1 - PSHx: 11:29 Ligation of fallopian tube; Thyroidectomy; Umbilical Hernia; Cholecystectomy; vg1 - Immunization history:: Client reports receiving the 2nd dose of the Covid vaccine. - Social history:: Smoking status: Patient denies any tobacco usage or history of. Screenin:41 Abuse screen: Denies threats or abuse. Denies injuries from another. Nutritional ab2 screening: No deficits noted. Tuberculosis screening: No symptoms or risk factors identified. Fall Risk None identified. Assessment: 12:40 General: Appears in no apparent distress. uncomfortable, Behavior is calm, cooperative, ab2 appropriate for age. Pain: Complains of pain in left knee. Neuro: Level of Consciousness is awake, alert, obeys commands, Oriented to person, place, time, situation, Appropriate for age Registration Specialist are equal bilaterally Moves all extremities. Gait is steady, Speech is normal. Cardiovascular: No deficits noted. Denies chest pain, shortness of breath, Heart tones S1 S2 present Patient's skin is warm and dry. Respiratory: No deficits noted. Airway is patent Respiratory effort is even, unlabored, Respiratory pattern is regular, symmetrical. GI: No deficits noted. No signs and/or symptoms were reported involving the gastrointestinal system. Abdomen is round non-distended, Bowel sounds present X 4 quads. : No deficits noted. No signs and/or symptoms were reported regarding the genitourinary system. EENT: No deficits noted. No signs and/or symptoms were reported regarding the EENT system. Derm: No deficits noted. Skin is intact, Skin is pink, warm \T\ dry. Musculoskeletal: No deficits noted. No signs and/or symptoms reported regarding the musculoskeletal system. Vital Signs: 11:26 BP 124 / 64; Pulse 74; Resp 16; Temp 98.0; Pulse Ox 100% ; Weight 61.23 kg; Height 5 vg1 ft. 0 in. (152.40 cm); Pain 6/10; 13:54 BP 121 / 67; Pulse 70; Resp 18; Pulse Ox 100% on R/A; ab2 11:26 Body Mass Index 26.37 (61.23 kg, 152.40 cm) vg1 ED Course: 10:53 Patient arrived in ED. am2 10:53 Giancarlo Parada MD is Private Physician. am2 11:29 Triage completed. vg1 11:29 Arm band placed on. vg1 12:16 Mem[facility] Campos [facility]. cp 12:16 Memo Person MD is Attending Physician. cp 12:22 Cl Ruvalcaba is Primary Nurse. ab2 12:41 Patient has correct armband on for positive identification. Bed in low position. Call ab2 light in reach. Side rails up X2. 12:41 No provider procedures requiring assistance completed. ab2 13:12 Knee Left 3 View XRAY In Process Unspecified. EDMS 13:15 Knee Left 3 View XRAY In Process Unspecified. EDMS 13:40 Edis Barrera MD is Referral Physician. cp 13:54 Patient did not have IV access during this emergency room visit. ab2 Administered Medications: 12:39 Drug: Tylenol 650 mg Route: PO; ab2 12:39 Drug: Ibuprofen 600 mg Route: PO; ab2 Outcome: 13:40 Discharge ordered by MD. cp 13:54 Discharged to home via wheelchair. ab2 13:54 Condition: good 13:54 Discharge instructions given to patient, Instructed on discharge instructions, follow up and referral plans. Demonstrated understanding of instructions, follow-up care, Prescriptions given X 1. 13:54 Patient left the ED. ab2 Signatures: Dispatcher [employer] EDCT Memo Campos PA PA cp Tonya Gutierrez am2 Fern Estrada, RN RN vg1 Cl Ruvalcaba ab2 Corrections: (The following items were deleted from the chart) 11:31 11:29 PSHx: Repair of inguinal hernia; vg1 vg1
--- NOTE | 2021-07-27 13:41 | EDPHYS ---
Physician Documentation [facility] Name: Teena Rogers Age: 75 yrs Sex: Female : 1945 Arrival Date: 07/27/2021 Time: 10:53 Bed 10 Private MD: Giancarlo Parada ED Physician Memo Person HPI: 07/27 12:29 This 75 yrs old Female presents to ER via Wheelchair with complaints of Fall cp Injury, Knee Pain - left. Historical: - Allergies: 11:29 Codeine; vg1 - Home Meds: 11:29 brimonidine 0.15 % ophthalmic drop 1 drop twice a day [Active]; Desoximetasone Topical vg1 [Active]; indapamide 2.5 mg Oral tab 1 tab twice a day [Active]; Mirapex 0.25 mg Oral tab 1 tab twice a day [Active]; potassium chloride 10 mEq Oral cpER 3 caps once daily [Active]; - PMHx: 11:29 Glaucoma; Hypothyroidism; Parkinsons; THYROID CANCER; vg1 - PSHx: 11:29 Ligation of fallopian tube; Thyroidectomy; Umbilical Hernia; Cholecystectomy; vg1 - Immunization history:: Client reports receiving the 2nd dose of the Covid vaccine. - Social history:: Smoking status: Patient denies any tobacco usage or history of. ROS: 12:35 MS/extremity: Positive for pain, of the left knee, Negative for decreased range of cp motion, paresthesias. 12:35 Constitutional: Negative for body aches, chills, fever. cp 12:35 Neck: Negative for pain with movement, pain at rest, stiffness. 12:35 Cardiovascular: Negative for chest pain. 12:35 Respiratory: Negative for cough, shortness of breath, wheezing. 12:35 Abdomen/GI: Negative for abdominal pain, nausea, vomiting, and diarrhea. 12:35 Back: Negative for pain at rest, pain with movement. 12:35 Neuro: Negative for headache, weakness. 12:35 All other systems are negative. Exam: 12:40 Constitutional: The patient appears in no acute distress, alert, awake, non-toxic, well cp developed, well nourished. 12:40 Head/Face: Normocephalic, atraumatic. cp 12:40 Neck: ROM/movement: is normal, is supple, without pain, no range of motions limitations. 12:40 Chest/axilla: Inspection: normal. 12:40 Cardiovascular: Rate: normal, Pulses: Pulses are 2+ in left dorsalis pedis artery. Edema: is not appreciated. 12:40 Respiratory: the patient does not display signs of respiratory distress, Respirations: normal, no use of accessory muscles, no retractions. 12:40 Abdomen/GI: Exam negative for discomfort, distension, guarding, Inspection: abdomen appears normal. 12:40 Musculoskeletal/extremity: Extremities: grossly normal except: noted in the left knee: pain, tenderness noted posterior knee and patella tenderness, ROM: limited passive range of motion due to pain, in the left knee. 12:40 Skin: cellulitis, is not appreciated, no rash present. 12:40 Neuro: Orientation: to person, place \T\ time. Mentation: is normal. Vital Signs: 11:26 BP 124 / 64; Pulse 74; Resp 16; Temp 98.0; Pulse Ox 100% ; Weight 61.23 kg; Height 5 vg1 ft. 0 in. (152.40 cm); Pain 6/10; 13:54 BP 121 / 67; Pulse 70; Resp 18; Pulse Ox 100% on R/A; ab2 11:26 Body Mass Index 26.37 (61.23 kg, 152.40 cm) vg1 MDM: 12:21 Patient medically screened. cp 12:40 Differential diagnosis: closed fracture, contusion, tendonitis. cp 13:40 Data reviewed: vital signs, nurses notes, radiologic studies, plain films. cp 13:40 Test interpretation: by ED physician or midlevel provider: plain radiologic studies. cp Counseling: I had a detailed discussion with the patient and/or guardian regarding: the historical points, exam findings, and any diagnostic results supporting the discharge/admit diagnosis, radiology results, the need for outpatient follow up, a orthopedic surgeon. Response to treatment: the patient's symptoms have mildly improved after treatment, and as a result, I will discharge patient. 07/27 11:32 Order name: Knee Left 3 View XRAY vg1 Administered Medications: 12:39 Drug: Tylenol 650 mg Route: PO; ab2 12:39 Drug: Ibuprofen 600 mg Route: PO; ab2 Disposition Summary: 07/27/21 13:40 Discharge Ordered Location: Home cp Problem: new cp Symptoms: have improved cp Condition: Stable cp Diagnosis - Pain in left knee cp Followup: cp - With: Edis Barrera MD - When: 1 week - Reason: pain continues Discharge Instructions: - Discharge Summary Sheet cp - Elastic Bandage and RICE Therapy cp - Acute Knee Pain, Adult cp Forms: - Medication Reconciliation Form cp - Thank You Letter cp - Antibiotic Education cp - Prescription Opioid Use cp Prescriptions: - Mobic 7.5 mg Oral Tablet - take 1 tablet by ORAL route once daily take with food; 20 tablet; Refills: 0, cp Product Selection Permitted Addendum: 07/29/2021 07:47 Co-signature as Attending Physician, Memo Person MD I agree with the assessment and c goldsmith plan of care. Signatures: Dispatcher [employer] EDMemo George MD MD cha Page, Corey PA Fern Waldron cp, RN RN vg1 Cl [id number] Corrections: (The following items were deleted from the chart) 07/27 11:31 11:29 PSHx: Repair of inguinal hernia; vg1 vg1
[2021-07-27 18:26] VITALS: BP 121/67; O2SAT 100
[2021-07-27 18:28] VITALS: TEMP 98
== END 2021-07-27 13:54 | disposition home or self-care (01) ==
LOC: ER 10:52
DX: M25.562 Pain in left knee (principal); W19.XXXA Unspecified fall, initial encounter; G20 Parkinson's disease; E03.9 Hypothyroidism, unspecified; Z88.5 Allergy status to narcotic agent
CPT/HCPCS: 99283

== ENCOUNTER 2023-06-04 11:16 | Inpatient (IN) | payer OTHER ==
[2023-06-04 12:03] LABS: Absolute Lymphocytes (CBC) 0.4 K/uL (0.7-4.9); Hematocrit 35.7 % (36.0-45.0); MCV 86.4 fL (80-100); MPV 7.3 fL (7.6-11.3); Platelets 212 thou/uL (152-406); RBC Red Blood Cell Count 4.14 M/uL (3.86-4.86)
[2023-06-04 12:25] LABS: AST/SGOT 76 U/L (15-37); Albumin 3.6 g/dL (3.4-5.0); Alkaline Phosphatase 140 U/L (45-117); BUN Blood Urea Nitrogen 20 mg/dL (7-18); Bicarbonate 29 mEq/L (21-32); Bilirubin Total 1.2 mg/dL (0.2-1.0); Glomerular Filtration Rate 92 ml/min (=/>90); Glucose Level 116 mg/dL (74-106); Lipase 27 U/L (13-75); Protein, Total 7.1 g/dL (6.4-8.2); Sodium Level 141 mEq/L (136-145)
[2023-06-04 12:26] LABS: Specific Gravity > 1.030 (1.005-1.030); Urine Bacteria None Seen /HPF (<20); Urine Bilirubin NEGATIVE (Negative); Urine Blood 1+ (Negative); Urine Clarity Clear (Clear); Urine Color Yellow (Yellow); Urine Glucose NEGATIVE (Negative); Urine Mucus Slight /HPF (None Seen); Urine Protein TRACE (Negative); Urine RBC 21-50 /HPF (None Seen); Urine Urobilinogen 1+ (Normal)
[2023-06-04 12:26] LABS: ALT/SGPT < 10 U/L (13-56); Troponin High Sensitivity 188.5 pg/mL (<58.9)
--- NOTE | 2023-06-04 13:19 | RAD REPORT ---
EXAM DESCRIPTION: CT - Abdomen Pelvis W Contrast - 06/04/2023 12:53 pm CLINICAL HISTORY: Abdominal pain COMPARISON: 2021 and 2017 TECHNIQUE: Computed axial tomography of the abdomen pelvis was obtained. 100 cc Isovue-300 was admin istered intravenously. Oral contrast was not requested which limits evaluation of bowel and appendix All CT scans are performed using dose optimization technique as appropriate and may include automated exposure control or mA/KV adjustment according to patient size. FINDINGS: Cholecystectomy. Prominence of the biliary tree without significant change. Small hepatic cyst. Spleen, pancreas and adrenals unremarkable. Renal cysts. There is no evidence of diverticulitis. A hysterectomy. No adnexal mass IMPRESSION: Prominence of the biliary tree stable since 2018 presumably physiologic in this patient status post cholecystectomy No acute abnormality displayed
[2023-06-04 13:33] LABS: Blood Morphology Comment NOT SEEN (NOT SEEN); Platelet Estimate ADEQ; White Blood Cell Scan OK (OK)
--- NOTE | 2023-06-04 14:16 | EDPHYS ---
Physician Documentation [facility] Name: Teena Rogers Age: 77 yrs Sex: Female : 1945 Arrival Date: 06/04/2023 Time: 11:16 Bed 8 Private MD: ED Physician Roc Tee HPI: 06/04 11:48 This 77 yrs old Female presents to ER via Ambulatory with complaints of rt Abdominal Pain, Nausea. 11:48 Patient with prior history of pancreatitis presents to the ED with a sharp epigastric rt abdominal pain with associated nausea starting at 30 minutes prior to arrival. This was not after eating. Patient denies significant alcohol use recently. The patient states that the pain is improved, is only mild ache currently. Denies radiation or other associated symptoms. Symptoms are moderate severity, no other aggravating relieving factors.. Historical: - Allergies: 11:31 Codeine; aa5 - PMHx: 11:31 Glaucoma; Hypothyroidism; Parkinsons; THYROID CANCER; Pancreatitis; aa5 - PSHx: 11:31 Cholecystectomy; Ligation of fallopian tube; Thyroidectomy; Umbilical hernia; aa5 - Immunization history:: Adult Immunizations unknown. - Social history:: Smoking status: Patient denies any tobacco usage or history of. - Family history:: not pertinent. ROS: 11:48 Constitutional: Negative for fever, chills, and weight loss, Cardiovascular: Negative rt for chest pain, palpitations, and edema, Respiratory: Negative for shortness of breath, cough, wheezing, and pleuritic chest pain, MS/Extremity: Negative for injury and deformity, Skin: Negative for injury, rash, and discoloration, Neuro: Negative for headache, weakness, numbness, tingling, and seizure, Psych: Negative for depression, anxiety, suicide ideation, homicidal ideation, and hallucinations, 11:48 Abdomen/GI: Positive for abdominal pain, nausea, Negative for vomiting, diarrhea, constipation, Exam: 11:49 Abdomen/GI: Tenderness to the epigastrium without rebound, guarding, distention, rt 11:49 Constitutional: This is a well developed, well nourished patient who is awake, alert, rt and in no acute distress. Head/Face: Normocephalic, atraumatic. Chest/axilla: Normal chest wall appearance and motion. Nontender with no deformity. No lesions are appreciated. Cardiovascular: Regular rate and rhythm with a normal S1 and S2. No gallops, murmurs, or rubs. Normal PMI, no JVD. No pulse deficits. Respiratory: Lungs have equal breath sounds bilaterally, clear to auscultation and percussion. No rales, rhonchi or wheezes noted. No increased work of breathing, no retractions or nasal flaring. Skin: Warm, dry with normal turgor. Normal color with no rashes, no lesions, and no evidence of cellulitis. MS/ Extremity: Pulses equal, no cyanosis. Neurovascular intact. Full, normal range of motion. Neuro: Awake and alert, GCS 15, oriented to person, place, time, and situation. Cranial nerves II-XII grossly intact. Motor strength 5/5 in all extremities. Sensory grossly intact. Cerebellar exam normal. Normal gait. Psych: Awake, alert, with orientation to person, place and time. Behavior, mood, and affect are within normal limits. 12:09 ECG was reviewed by the Attending Physician. rt Vital Signs: 11:21 BP 155 / 70; Pulse 93; Resp 18 S; Temp 97.3(TE); Pulse Ox 97% on R/A; Weight 60.78 kg aa5 (R); Height 5 ft. 0 in. (R); 12:36 BP 148 / 80; Pulse 87; Resp 18; Pulse Ox 98% on R/A; ph 14:00 BP 157 / 81; Pulse 97; Resp 18; Pulse Ox 98% on R/A; cm10 11:21 Body Mass Index 26.17 (60.78 kg, 152.4 cm) aa5 MDM: 11:22 Patient medically screened. rt 15:34 Differential diagnosis: Pancreatitis, bowel obstruction, ACS. Data reviewed: vital rt signs, nurses notes, lab test result(s), EKG, radiologic studies. Consideration of Admission/Observation Patient was admitted/placed on observation. Management of patient was discussed with the following: Railway Signal Technician: Discussed with cardiology who will take the patient to the Gasser Machine Operator. Primary Care Provider: Agrees to admit. I considered the following discharge prescriptions or medication management in the emergency department Medications were administered in the Emergency Department. See MAR. Independent interpretation of the following test(s) in the Emergency Department CT Scan: My interpretation is No bowel obstruction some interpretation of CT scan images. Test considered but Not performed: Ultrasound Status post cholecystectomy, gallbladder ultrasound not indicated. Care significantly affected by the following chronic conditions: Parkinson's disease. Counseling: I had a detailed discussion with the patient and/or guardian regarding the historical points, exam findings, and any diagnostic results supporting the discharge/admit diagnosis, lab results, radiology results, the need for further work-up and treatment in the hospital. Response to treatment: the patient's symptoms have resolved after treatment. 06/04 11:31 Order name: CBC with Diff; Complete Time: 13:44 rt 06/04 11:31 Order name: CMP; Complete Time: 12:28 rt 06/04 11:31 Order name: Lipase; Complete Time: 12:28 rt 06/04 11:31 Order name: Urinalysis w/ reflexes; Complete Time: 12:28 rt 06/04 11:31 Order name: Troponin High Sensitivity; Complete Time: 12:28 rt 06/04 13:33 Order name: CBC Smear Scan; Complete Time: 13:44 EDMS 06/04 11:31 Order name: CT Abd/Pelvis - IV Contrast Only; Complete Time: 13:20 rt 06/04 11:31 Order name: EKG; Complete Time: 11:31 rt 06/04 14:24 Order name: CONS Physician Consult EDMS 06/04 11:31 Order name: IV Saline Lock; Complete Time: 12:00 rt 06/04 11:31 Order name: Labs collected and sent; Complete Time: 12:00 rt 06/04 11:31 Order name: EKG - Nurse/Tech; Complete Time: 12:07 rt EC:09 Rate is 84 beats/min. Rhythm is regular, Normal Sinus Rhythm with No ectopy. QRS [place] rt is Normal. NE interval is normal. QRS interval is normal. QT interval is normal. No Q waves. T waves are Normal. No ST changes noted. Interpreted by me. Administered Medications: 15:00 Not Given (pt to cath labb): enoxaparin1 mg/kg Sub-Q once iw Disposition Summary: 06/04/23 14:14 Hospitalization Ordered Notes: Hospitalization Status: Inpatient Admission rt Provider: Giancarlo Parada rt Location: Telemetry/[facility]Sur (Inpatient) rt Condition: Fair rt Problem: new rt Symptoms: have improved rt Bed/Room Type: Standard rt Room Assignment: rt Diagnosis - Subsequent non-ST elevation (NSTEMI) myocardial infarction rt Forms: - Medication Reconciliation Form rt - SBAR form rt - Leadership Thank You Letter rt Critical care time excluding procedures: 15:34 Critical care time: Bedside Care: 30 minutes, Consultation: 10 minutes. Total time: 40 rt minutes Signatures: Dispatcher [employer] Leda Oquendo RN RN aa5 Roc Tee MD MD rt Suzette Fry RN iw
--- NOTE | 2023-06-04 14:16 | ER ---
Nurse's Notes [facility] Name: Teena Rogers Age: 77 yrs Sex: Female : 1945 Arrival Date: 06/04/2023 Time: 11:16 Bed 8 Private MD: Diagnosis: Subsequent non-ST elevation (NSTEMI) myocardial infarction Presentation: 06/04 11:21 Chief complaint: Patient states: "I was at [employer] and I got this very sharp cramp on my [facility] stomach". pt reports pain to epigastric area that is now mild. pt also reports nausea, denies vomiting. 11:21 Coronavirus screen: nausea. Ebola Screen: Patient denies travel to an Ebola-affected [facility] area in the 21 days before illness onset. Initial Sepsis Screen: Does the patient meet any 2 criteria? HR > 90 bpm. Does the patient have a suspected source of infection? No. Patient's initial sepsis screen is negative. Risk Assessment: Do you want to hurt yourself or someone else? Patient reports no desire to harm self or others. Onset of symptoms was June 04, 2023 at 10:40. 11:21 Acuity: RICHA 3 aa5 11:21 Method Of Arrival: Ambulatory aa5 Historical: - Allergies: 11:31 Codeine; aa5 - PMHx: 11:31 Glaucoma; Hypothyroidism; Parkinsons; THYROID CANCER; Pancreatitis; aa5 - PSHx: 11:31 Cholecystectomy; Ligation of fallopian tube; Thyroidectomy; Umbilical hernia; aa5 - Immunization history:: Adult Immunizations unknown. - Social history:: Smoking status: Patient denies any tobacco usage or history of. - Family history:: not pertinent. Screenin:58 [facility] ED Fall Risk Assessment (Adult) History of falling in the last 3 months, ph including since admission No falls in past 3 months (0 pts) Score/Fall Risk Level 0 - 2 = Low Risk. Abuse screen: Denies threats or abuse. Denies injuries from another. Nutritional screening: No deficits noted. Tuberculosis screening: No symptoms or risk factors identified. Assessment: 11:59 General: Appears in no apparent distress. comfortable, Behavior is calm, cooperative, ph appropriate for age. Pain: Complains of pain in right upper quadrant and left upper quadrant. Neuro: Level of Consciousness is awake, alert, obeys commands, Oriented to person, place, time, situation. Cardiovascular: Capillary refill < 3 seconds in bilateral fingers Patient's skin is warm and dry. Respiratory: Airway is patent Respiratory effort is even, unlabored. GI: Abd is soft X 4 quads Reports upper abdominal pain, nausea. Derm: Skin is pink, warm \\T\\ dry. 14:11 Reassessment: Assumed care of patient at this time. Pt reports that she is still having cm10 some abdominal pain and is having a dull headache. PT rates the pain a 5/10 on pain scale. Provider made aware. Reassessment:. General: Appears in no apparent distress. comfortable, Behavior is calm, cooperative. Pain: Complains of pain in head and abdomen Pain currently is 5 out of 10 on a pain scale. Quality of pain is described as dull. Neuro: No deficits noted. Level of Consciousness is awake, alert, obeys commands, Oriented to person, place, time, situation, Reports headache. Cardiovascular: No deficits noted. Denies chest pain, shortness of breath, Capillary refill < 3 seconds Patient's skin is warm and dry. Rhythm is regular. Respiratory: No deficits noted. Airway is patent Respiratory effort is even, unlabored, Respiratory pattern is regular, symmetrical, Breath sounds are clear bilaterally. GI: Abdomen is non-distended, Bowel sounds present X 4 quads. Abd is soft X 4 quads Abdomen is tender to palpation X 4 quads. Reports lower abdominal pain, upper abdominal pain, nausea. : No deficits noted. No signs and/or symptoms were reported regarding the genitourinary system. EENT: No deficits noted. No signs and/or symptoms were reported regarding the EENT system. Derm: No deficits noted. No signs and/or symptoms reported regarding the dermatologic system. Skin is intact, Skin is pink, warm \\T\\ dry. 14:44 Reassessment: Per agile scrum master hold lovenox due to patient going to mobile home laborer. cm10 Vital Signs: 11:21 BP 155 / 70; Pulse 93; Resp 18 S; Temp 97.3(TE); Pulse Ox 97% on R/A; Weight 60.78 kg aa5 (R); Height 5 ft. 0 in. (R); 12:36 BP 148 / 80; Pulse 87; Resp 18; Pulse Ox 98% on R/A; ph 14:00 BP 157 / 81; Pulse 97; Resp 18; Pulse Ox 98% on R/A; cm10 11:21 Body Mass Index 26.17 (60.78 kg, 152.4 cm) aa5 ED Course: 11:19 Patient arrived in ED. im 11:21 Roc Tee MD is Attending Physician. rt 11:21 Arm band placed on Patient placed in an exam room, on a stretcher. aa5 11:34 Triage completed. aa5 11:43 Silvia Jacobs RN is Primary Nurse. ph 11:58 Initial lab(s) drawn, by me, sent to lab. Inserted saline lock: 22 gauge in right ph antecubital area, using aseptic technique. Blood collected. 12:00 Patient has correct armband on for positive identification. Placed in gown. Bed in low ph position. Call light in reach. Side rails up X2. Pulse ox on. NIBP on. 12:00 CBC with Diff Sent. ph 12:00 CMP Sent. ph 12:00 Lipase Sent. ph 12:00 Troponin High Sensitivity Sent. ph 12:08 EKG done, by ED staff, reviewed by Roc Tee MD. em1 12:55 CT Abd/Pelvis - IV Contrast Only In Process Unspecified. EDMS 14:11 Primary Nurse role handed off by Silvia Jacobs RN cm10 14:11 Salma Hartley RN is Primary Nurse. cm10 14:14 Giancarlo Parada MD is Hospitalizing Provider. rt 15:10 Provided Education on: Need for admission.. cm10 15:10 No provider procedures requiring assistance completed. Patient admitted, IV remains in cm10 place. Administered Medications: 15:00 Not Given (pt to cath labb): enoxaparin1 mg/kg Sub-Q once iw Medication: 11:59 VIS not applicable for this client. ph Outcome: 14:14 Decision to Hospitalize by Provider. rt 15:10 Admitted to Track Moving Machine Operator accompanied by nurse, via stretcher, cm10 15:10 Condition: good 15:10 Instructed on the need for admit, 15:10 Patient left the ED. cm10 Signatures: Dispatcher [employer] EDMS Rudy Hartley em1 Leda Iniguez RN RN aa5 Silvia Jacobs, SAMARA RN Roc Tee MD MD rt Hector, DianeSalma Temple, SAMARA RN cm10 Suzette Fry RN iw
--- NOTE | 2023-06-04 14:26 | EKG ---
Test Date: 2023-06-04 Test Time: 12:04:50 Licensed Occupational Therapy Assistant: JOSE MEASUREMENT RESULTS: Intervals: Rate: 84 OR: 150 QRSD: 96 QT: 398 QTc: 470 [place]: P: 60 OR: 150 QRS: 62 T: 63 INTERPRETIVE STATEMENTS: Normal sinus rhythm Normal ECG Compared to ECG 02/17/2018 00:34:39 ST (T wave) deviation no longer present Electronically Signed On 06-04-23 14:25:43 NEWSPAPER LIBRARY MANAGER by Gurmeet Knight
[2023-06-04] MEDS ORDERED: ENOXAPARIN 60 MG/0.6 ML SQ ONE (14:55)
[2023-06-04] MEDS ORDERED: HEPA 1000U/500MLS 2,000 UNIT/1,000 ML BAG IV ONE (14:59)
[2023-06-04] MEDS ORDERED: LIDOCAINE 1% 20 ML MDV ONE (14:59)
[2023-06-04] MEDS ORDERED: NA CHLORIDE 0.9% 500 ML ONE (15:12)
[2023-06-04] MEDS ORDERED: HEPARIN 5000 UNIT/ML 1 ML VIAL ONE (15:19)
[2023-06-04] MEDS ORDERED: MIDAZOLAM HCL 2 MG/2 ML INJ ONE (15:19)
[2023-06-04] MEDS ORDERED: FENTANYL CITR 100 MCG/2 ML ONE (15:19)
[2023-06-04] MEDS ORDERED: TICAGRELOR 90 MG TABLET PO ONE (15:19)
[2023-06-04] MEDS ORDERED: ATROPINE SULF 1 MG/10 ML SYR IV ONE (15:19)
[2023-06-04] MEDS ORDERED: VERAPAMIL HCL 10 MG/4 ML VIAL IV ONE (15:19)
[2023-06-04] MEDS ORDERED: CLOPIDOGREL 75 MG TABLET ONE (15:20)
[2023-06-04] MEDS ORDERED: HEPARIN 10,000 UNIT/10 ML VIAL IV ONE (15:20)
[2023-06-04] MEDS ORDERED: ASPIRIN 325 MG TAB ONE (15:20)
[2023-06-04 17:47] VITALS: O2SAT 100
[2023-06-04 19:01] VITALS: BMI 26.2
[2023-06-04] MEDS ORDERED: ONDANSETRON 4 MG/2 ML VIAL IV PRN (19:07)
[2023-06-04] MEDS: ACETAMINOPHEN 325 MG TABLET ONE (19:11)
[2023-06-04] MEDS: ACETAMINOPHEN 325 MG TABLET PO PRN (19:12)
[2023-06-04 19:39] LABS: Absolute Lymphocytes (CBC) 0.4 K/uL (0.7-4.9); Hematocrit 38.5 % (36.0-45.0); Lymphocytes % 5.3 % (15.3-44.8); MCV 85.6 fL (80-100); MPV 7.6 fL (7.6-11.3); Platelets 229 thou/uL (152-406)
[2023-06-04] MEDS ORDERED: PNEUMOCOCCAL VACCINE 0.5 ML IMVAC ONE (20:00)
--- NOTE | 2023-06-04 20:17 | CON ---
Date of Consultation: 06/04/2023 Reason For Consultation: Chest pain and elevated troponin. History Of Present Illness: This is a 77-year-old female, history of hypothyroidism, Parkinson's dis ease, pancreatitis, presented with pain in the lower chest, pressure-like, and in epigastric area. S he felt nauseated, did not throw up. The pain did not radiate and it was at rest. Upon evaluation i n the emergency room, her first troponin was elevated at 180. Pain was gradually improving. EKG did not show any abnormality since she does not have any history of cardiac disease. Past Medical History: Hypothyroidism, Parkinson, glaucoma, and pancreatitis. Medications: Refer reconciliation sheet for detailed list. Allergies: CODEINE. Family History: No premature coronary artery disease or cancer. Social History: She does not smoke or drink. Does not use any drugs. Review of Systems: All systems reviewed are negative except mentioned in HPI. Physical Examination: Vital Signs: Reviewed. Head and Neck: Pupils are equal, reactive to light. Intact eye movements. No JVD. No cervical lym phadenopathy. Neck supple. Thyroid is not enlarged. Lungs: Clear to auscultation bilaterally. No rhonchi, rales, or crackles. No accessory muscle use. Heart: Regular rate and rhythm. No extra sounds. Abdomen: Soft, nontender. Bowel sounds positive. No organomegaly or cyanosis. No rigidity or rebo und. Extremities: No clubbing, cyanosis. Trace edema. Neurologic: Alert, awake, oriented x3. No acute focal deficit appreciated. Investigations: BUN 20, creatinine 0.63, potassium is 3.8. Troponin 188. Hemoglobin is 12.6. EKG, normal sinus rhythm without acute abnormality. Assessment And Recommendation: 1.Ehg-[id number] myocardial infarction. Has a chest pain with positive troponin. Keep n.p.o., pl an for coronary angiogram today, start baby aspirin 81 mg and also her lipase was checked, that ruled out acute pancreatitis. 2.History of pancreatitis. Lipase is negative, but she does have epigastric pain. Further investig ation is recommended with CT scan of the abdomen, especially if her coronary angiogram is normal. 3.Hypothyroidism. Check TSH. SR/MODL Voice ID: [id number] Report ID: [id number]
--- NOTE | 2023-06-04 20:38 | OP ---
Date of Procedure: 06/04/2023 Surgeon: HAZEL MCKEON Procedure Performed: 1.Selective coronary angiogram. 2.Left heart catheterization. Indication: [id number] myocardial infarction. Access: Right radial artery 6-[place], closed with TR band. Complications: None. Bleeding: Less than 50 mL. Anesthesia: Total sedation time was 30 minutes. Description Of Procedure: After risks, benefits, and alternatives were explained, the patient agreed to procedure and signed informed consent. The patient was brought to the cardiac catheterization la boratory, prepped and draped in usual sterile fashion. I accessed right radial artery using [place] c micropuncture kit and placed 6-[place] Slender sheath, and took 5-[place] tiger 4 catheter over the J -wire into the aortic root, crossed the aortic valve and measured the LVEDP. Pullback did not record any gradient. Then engaged the left main, took standard views, in the RCA took standard views and t hen removed the catheter and sheaths, placed TR band with good hemostasis. Findings: 1.Left main: Large and normal. 2.LAD: Moderate-size vessel with ostial 30% stenosis and there is high takeoff diagonal 1 branch th at is fairly large, larger than the LAD. The rest of the LAD is normal and the diagonal branch is no rmal. 3.Left circumflex is large vessel and normal. 4.RCA is large and dominant with proximal 30% stenosis. 5.LVEDP is normal at 10 mmHg. Conclusion: 1.Mild nonobstructive coronary artery disease. 2.Normal LVEDP. Recommendations: Search for other causes of chest pain. The elevated troponin is demand ischemia an d it is not [id number] AL. I will discuss the case further with Dr. Parada. SR/MODL Voice ID: [id number] Report ID: [id number]
[2023-06-04] MEDS: PIPER TAZO 3.375 GM in NA CHLORIDE 0.9% 100 ML IV SCH (20:41)
[2023-06-04] MEDS: PRAMIPEXOLE 0.25 MG TAB PO SCH (20:42)
[2023-06-04] MEDS: BRIMONIDINE 0.15% OPTH SCH (20:45)
[2023-06-04] MEDS: RYTARY PO SCH (20:45)
[2023-06-04 20:51] LABS: Urine Bacteria None Seen /HPF (<20); Urine Bilirubin NEGATIVE (Negative); Urine Blood 3+ (Negative); Urine Clarity Clear (Clear); Urine Color Light-Yellow (Yellow); Urine Glucose NEGATIVE (Negative); Urine Mucus Slight /HPF (None Seen); Urine Protein NEGATIVE (Negative); Urine RBC >50 /HPF (None Seen); Urine Urobilinogen Normal (Normal); Urine pH 6.5 (5.0-7.0)
[2023-06-04 20:52] LABS: Specific Gravity > 1.030 (1.005-1.030)
[2023-06-04 21:37] LABS: SARS-COV-2 RT PCR POSITIVE (NEGATIVE)
[2023-06-04] MEDS: GUAIFENESIN/DM 5 ML UCUP PO PRN (23:08)
[2023-06-05 02:08] LABS: Hematocrit 35.9 % (36.0-45.0); Lymphocytes % 17.7 % (15.3-44.8); MCV 85.9 fL (80-100); MPV 7.3 fL (7.6-11.3); Platelets 198 thou/uL (152-406); RBC Red Blood Cell Count 4.18 M/uL (3.86-4.86)
[2023-06-05 02:42] LABS: Albumin 3.6 g/dL (3.4-5.0); Bilirubin Total 1.2 mg/dL (0.2-1.0); Protein, Total 7.1 g/dL (6.4-8.2)
[2023-06-05 02:45] LABS: Potassium 2.6 mEq/L (3.5-5.1)
[2023-06-05] MEDS: POTASSIUM 25 MEQ EFFERV TAB PO ONE (04:27)
[2023-06-05] MEDS: NA CHLORIDE 0.9% 250 ML ONE ×2 (06:04→16:39)
[2023-06-05] MEDS: LEVOTHYROXINE SOD 0.088 MG TAB PO SCH (06:06)
[2023-06-05] MEDS: KCL 20 MEQ/100 mL IVPB 20 MEQ/100 ML BAG IV ONE (06:06)
[2023-06-05] MEDS: ZINC SULFATE 220 MG CAP PO SCH (09:00)
[2023-06-05] MEDS: POTASSIUM CL SA 10 MEQ TAB PO SCH (09:00)
[2023-06-05] MEDS ORDERED: ASCORBIC ACID 500 MG TABLET PO SCH (09:00)
[2023-06-05] MEDS ORDERED: NIRMATRELVIR/RITONAVIR TABLET PO SCH (09:00)
[2023-06-05] MEDS: VITAMIN B COMPLEX 1 CAP PO SCH (09:40)
[2023-06-05] MEDS: ASCORBIC ACID 500 MG TABLET PO SCH (09:41)
[2023-06-05] MEDS: NIRMATRELVIR/RITONAVIR TABLET PO SCH (09:42)
[2023-06-05] MEDS: INDAPAMIDE 1.25 MG TAB PO SCH (09:52)
--- NOTE | 2023-06-05 10:37 | P.PN ---
Subjective Date of Service: 06/05/23 Subjective: No new changes (patient is COVID positive) Review of Systems 10-point ROS is otherwise unremarkable Physical Examination - Vital Signs Temperature: 97.9 F Blood Pressure: 123/62 Pulse: 67 Respirations: 18 Pulse Ox (%): 97 - Physical Exam General: Alert, Oriented x3 HEENT: Atraumatic Neck: Supple Respiratory: Clear to auscultation bilaterally Cardiovascular: No edema, Normal S1 S2 Gastrointestinal: Normal bowel sounds - Studies Laboratory Data (last 24 hrs) 06/04/23 06/04/23 11:55 11:55 WBC 7.70 Hgb 12.6 Hct 35.7 L Plt Count 212 Sodium 141 Potassium 3.0 L BUN 20 H Creatinine 0.63 Glucose 116 H Total Bilirubin 1.2 H AST 76 H ALT < 10 L Alkaline Phosphatase 140 H Lipase 27 Assessment And Plan - Current Problems (Diagnosis) (1) NSTEMI (non-ST elevated myocardial infarction) Current Visit: Yes Status: Acute Plan: patient had a normal coronary angiogram so troponin leaks most likely secondary to COVID get echo and start patient on ASA 81 mg daily and Lipitor 40 mg daily Follow up with cardiology as outpatient.
--- NOTE | 2023-06-05 11:09 | HP ---
Date of Admission: 06/04/2023 Entrance Complaint: Mid upper abdomen and lower chest pain. History Of Present Illness: The patient states she was in her usual state of health which has been p retty good other than her parkinsonism when she had a sudden severe pain in basically the mid epigast laine area, nonradiating, some shortness of breath associated with it, broke out into a sweat. Due to intensity of pain, came to the ER. Past History: Other than the parkinsonism, the patient has had no coronary artery disease. Social History: Nonsmoker. Family History: Noncontributory. Physical Examination: General: The patient is a well-built elderly female with stable vital signs in mild distress. Head and Neck: Normocephalic. Pupils equal to light and accommodation. ENT negative. Chest: Clear to P and A. Cardiovascular: PMI midclavicular line. Heart: Sounds normal. Peripheral pulses present and equal bilaterally. Abdomen: Minimal tenderness mid epigastric area. No guarding, rebound, tenderness, rigidity. Bowel sounds normal. Extremities: Good tone and movement bilaterally. Neurologic: Reflexes physiologic. Obvious tremors associated with parkinsonism. Rectal and Pelvic: Deferred. Impression: Acute pylorospasm, parkinsonism, stable. Plan: The patient will be admitted and be evaluated with blood and CT scans. Depending on the resul ts, will be treated accordingly. In the meantime will be started on fluids and symptomatic treatment . HR/MODL Voice ID: [id number]
--- NOTE | 2023-06-05 11:09 | PN ---
Date of Progress Note: 06/04/2023 During her workup, the patient was found to have an elevated troponin rapid, it was therefore felt a possibility of cardiac event has to be considered. She was therefore taken to the woodworking [employer] laborer, which di d not reveal any significant narrowing, was then returned, was doing fine until she spiked a temperat ure last night to 103 and tested positive for COVID. She was treated accordingly and Cardiology will be notified in the a.m. HR/MODL Voice ID: [id number] Report ID: [id number]
[2023-06-05] MEDS ORDERED: KCL 20 MEQ/100 mL IVPB 20 MEQ/100 ML BAG IV SCH (14:00)
--- NOTE | 2023-06-05 16:27 | RAD REPORT ---
EXAM DESCRIPTION: MRI - Cholangiogram - 06/05/2023 4:03 pm CLINICAL HISTORY: abd pain COMPARISON: Cholangiogram dated 02/18/2018; Abdomen Pelvis W Contrast dated 06/04/2023 FINDINGS: Three-dimensional MRCP was performed using maximum intensity projection reconstruction on the same work station. Similar intra and extrahepatic biliary duct dilatation. The common bile duct measures approximately 1 3 millimeters. No evidence of choledocholithiasis. Small cystic duct remnant. No pancreatic duct dila tation. The pancreas is atrophic. Cholecystectomy. Bilateral renal cysts. Limited T2 sequences through the abdomen demonstrates no bulky adenopathy, significant free fluid or abscess. IMPRESSION: Similar intra and extrahepatic biliary ductal dilatation which is presumably related to the postcholecystectomy state and overall similar to 02/18/2018. No obstructing mass or stone identif ied.
--- NOTE | 2023-06-05 16:29 | RAD REPORT ---
EXAM DESCRIPTION: CT - Chest For Pe Angio - 06/05/2023 4:11 pm CLINICAL HISTORY: R/O PE COMPARISON: No comparisons TECHNIQUE: Dynamically enhanced axial 3 mm thick images of the chest were obtained during administra tion of <100> mL Isovue 370 IV contrast. Coronal and oblique reconstruction images were generated and reviewed. Exam utilizes a protocol for optimal evaluation of pulmonary arterial tree. Maximum intensity projections 3D imaging was utilized All CT scans are performed using dose optimization technique as appropriate and may include automated exposure control or mA/KV adjustment according to patient size. FINDINGS: Chest Wall: No suspicious thyroid nodules or pathologic lymphadenopathy. Lungs: No acute abnormality. 4 mm calcified right lower lobe nodule is benign. Pleura: No significant effusions or pneumothorax. Mediastinum/william: No pathologic lymphadenopathy. Pulmonary arteries/Aorta: No filling defect identified. No aortic aneurysm. Heart: No significant pericardial effusion. Normal heart size. Upper abdomen: No acute abnormality.Cholecystectomy. Intrahepatic biliary duct dilatation and extrahe patic biliary duct dilatation. Reference same-day MRCP. Bones: No acute abnormality. Multilevel degenerative changes are present in the spine. ACDF in the ce rvical spine. IMPRESSION: Negative for pulmonary embolism. No acute findings in the chest.
[2023-06-05] MEDS: KCL 20 MEQ/100 mL IVPB 20 MEQ/100 ML BAG IV SCH (16:40)
[2023-06-05 19:05] VITALS: BP 118/77; TEMP 978
--- NOTE | 2023-06-05 20:24 | PN ---
Date of Progress Note: 06/05/2023 The patient states she feels considerably better today. She remains afebrile. Appetite has improved slightly. Tolerating her diet without any GI symptoms. However, her liver enzymes are still slight ly elevated. We will continue with her medication on an outpatient basis with the addition of antibi otic for her COVID, presumably the diagnosis that got her admitted as her MRCP and followup PE exams of the chest are all negative. She will be discharged to follow up with me in 1 week. Final Diagnoses: COVID, pylorospasm, Parkinson's, controlled. The only addition to her medicine being Paxlovid, Ulisesitussin DM on p.r.n. basis. HR/MODL Voice ID: [id number] Report ID: [id number]
== END 2023-06-05 18:45 | disposition home or self-care (01) | DRG 177 ==
LOC: ER 11:16 → ERHOLD 14:20 → 2ND 15:46
PROVIDERS: ADMIT Family Medicine; ATTEND Family Medicine
PROC: 4A023N7 Measurement of Cardiac Sampling and Pressure, Left Heart, Percutaneous Approach (ICD-10-PCS; principal; 2023-06-04)
PROC: B2111ZZ Fluoroscopy of Multiple Coronary Arteries using Low Osmolar Contrast (ICD-10-PCS; 2023-06-04)
DX: U07.1 COVID-19 (principal); I21.4 Non-ST elevation (NSTEMI) myocardial infarction; K31.3 Pylorospasm, not elsewhere classified; E03.9 Hypothyroidism, unspecified; G20.A1 Parkinson's disease without dyskinesia, without mention of fluctuations; R74.01 Elevation of levels of liver transaminase levels; Z88.5 Allergy status to narcotic agent; Z90.49 Acquired absence of other specified parts of digestive tract; Z98.51 Tubal ligation status; Z85.850 Personal history of malignant neoplasm of thyroid
CPT/HCPCS: 0240U; 36415; 71275; 74177; 74181; 76937; 80053; 81001; 83690; 84132; 84484; 85025; 87040; 93005; 93458; 99152; 99153; 99285; C1893; J0461; J1644; J1650; J2001; J2250; J2543; J3010; J3480; J7040; J7050; J8499; Q9966; Q9967